=== PATIENT | male | born 2000 | race Hispanic/Latino ===

== ENCOUNTER 2018-03-24 14:54 | Emergency (ER) | payer OTHER ==
[2018-03-24] MEDS ORDERED: Morphine 4 MG/ML VIAL ONE (15:16)
[2018-03-24] MEDS ORDERED: HYDROmorphone 0.5 MG/0.5 ML SYRINGE ONE ×3 (16:52→21:01)
[2018-03-24] MEDS ORDERED: Ondansetron PF 4 MG/2 ML Vial ONE (18:57)
[2018-03-24] MEDS ORDERED: Dexamethasone 10 MG/ML VIAL ONE (19:19)
== END 2018-03-24 21:05 | disposition short-term general hospital (02) ==
LOC: ERS 14:54
DX: S02.82XA Fracture of other specified skull and facial bones, left side, initial encounter for closed fracture (principal); S22.059A Unspecified fracture of T5-T6 vertebra, initial encounter for closed fracture; S22.069A Unspecified fracture of T7-T8 vertebra, initial encounter for closed fracture; R55 Syncope and collapse; W11.XXXA Fall on and from ladder, initial encounter
CPT/HCPCS: 94760; 96374; 96375; 96376; J1100; J1170; J2270; J2405